=== PATIENT | female | born 1980 | race Caucasian/White ===

== ENCOUNTER 2017-03-01 21:52 | Emergency (ER) | payer OTHER ==
[~2017-03-01] VITALS: Ht 167.6 cm; Wt 71.7 kg
[2017-03-01 22:02] VITALS: Ht 167.6 cm; Wt 71.7 kg
[2017-03-01] MEDS ORDERED: SODIUM CHLORIDE 0.9% 1000ML 1,000 ML IV STA (22:30)
[2017-03-01] MEDS ORDERED: CEFTRIAXONE SOD INJ 1 GM ADDVIAL IV STA (22:30)
[2017-03-01] MEDS ORDERED: ONDANSETRON INJ 2 MG/ML 2 ML VIAL IV STA (22:30)
[2017-03-01] MEDS ORDERED: LORAZEPAM 2 MG/ML 1 ML VIAL IV STA (22:34)
[2017-03-01 22:51] LABS: URINE APPEARANCE CLEAR (CLEAR); URINE BILIRUBIN NEG (NEG); URINE COLOR DK YELLOW; URINE NITRITE POS (NEG); URINE SPECIFIC GRAVITY 1.024 (1.000-1.030); UROBILINOGEN NEG (NEG); ZZUR CULT IF INDIC CLEAN CATCH NO
[2017-03-01 22:58] LABS: MANUAL MICROSCOPIC REQUIRED? NO; REVIEW REQ? NO
[2017-03-01 23:03] LABS: BASO % 0.1 %; BASO ABS # 0.01 K/uL (0-0.2); COMPLETE YES; EOS % 0.4 %; HEMATOCRIT 44.4 % (37-47); IG% 0.4 %; LYMPH % 1.9 %; LYMPH ABS # 0.21 K/uL (1.2-3.4); MEAN CELL VOLUME 89.3 fL (80-100); MEAN CORPUSCULAR HEMOGLOBIN 31.6 pg (25-34); MEAN CORPUSCULAR HGB CONC 35.4 g/dl (32-36); MEAN PLATELET VOLUME 9.7 fL (7.4-10.4); MONO % 3.8 %; NEUT % 93.4 %; PLATELET COUNT 128 K/uL (130-400); RED BLOOD COUNT 4.97 M/uL (4.2-5.4); WHITE BLOOD COUNT 10.84 K/uL (4.8-10.8)
[2017-03-01 23:20] LABS: BUN/CREATININE RATIO 12.6 (10-20); CALCIUM 9.2 mg/dl (8.5-10.1); CREATININE 1.3 mg/dl (0.60-1.20); POTASSIUM 3.9 mmol/L (3.5-5.1)
[2017-03-01 23:34] LABS: PREG INTERNAL NEGATIVE QC NEG CLEAR BACKGROUND; PREG INTERNAL POSITIVE QC POS CONTROL LINE
[2017-03-01] MEDS ORDERED: CIPR-255 PO (23:54)
[2017-03-02] MEDS ORDERED: LAMO150T32 PO (00:36)
[2017-03-02] MEDS ORDERED: KETOROLAC TROMETHAMINE 30 MG/ML VIAL IV STA (00:43)
[2017-03-02] MEDS ORDERED: CIPROFLOXACIN 500MG HOME PACK PO ONE (00:45)
[2017-03-02] MEDS ORDERED: ONDANSETRON HOME PACK 4MG OD TAB PO ONE (01:00)
[2017-03-02 01:04] VITALS: BP 99/51; PULSE 117; TEMP 37.4; O2SAT 97
--- NOTE | 2017-03-02 02:56 | EMERGENCY ROOM VISIT NOTE ---
History First contact with patient: 22:30 Chief Complaint: ALLERGIC REACTION Stated Complaint: REACTION TO BACTRIM, URINARY INFECTION SYMPTOMS Nursing Triage Summary: started bactrim for uti presents c/o redness to eyes and generalized illness History of Present Illness The patient is a 37 year old female who presents to the Emergency Room with complaints of urinary frequency, urgency, dysuria and suprapubic discomfort for the past few days who is also feeling fatigued and has redness to her eyes. Patient went to urgent care was given Bactrim for UTI today. Symptoms got worse and came here. Patient has a history of frequent UTIs. She is new to the area. She has an appointment in 2 weeks with urology for further workup for her recurrent UTIs. She's been on Bactrim several times in the past. Patient denies chest pain, dyspnea, fever, chills, nausea, vomiting, diarrhea vaginal itching or discharge. Patient is in a monogamous relationship. She does complain of some right flank discomfort that is minimal. Review of Systems See HPI for pertinent positives & negatives. A total of 10 systems reviewed and were otherwise negative. Past Medical/Surgical History Epilepsy Social History Smoking Status: Never Smoker Smokeless Tobacco Use: No Alcohol Use: occasionally Drug Use: none Marital Status: Housing Status: lives with family Occupation Status: employed Current/Historical Medications Scheduled Ciprofloxacin Hcl (Cipro), 500 MG PO BID Lamotrigine (Lamictal), 300 MG PO BID Lamotrigine (Lamictal), 2 TAB PO BID Miscellaneous Medications Iud's (Paragard Intrauterine Rn Patient Services) Allergies Coded Allergies: Nitrofurantoin (Verified Allergy, Unknown, INVOLUNTARY MUSCLE SPASMS, ) Physical Exam Vital Signs Date Time Temp Pulse Resp B/P Pulse Ox O2 Delivery O2 Flow Rate FiO2 03/02/17 01:04 37.4 117 16 99/51 97 03/02/17 00:03 37.9 118 16 110/58 98 Room Air 03/01/17 22:02 37.5 118 18 112/69 98 Room Air Pain Rating (0-10): 6.0 Physical Exam VITALS: Vitals are noted on the nurse's note and reviewed by myself. Vital signs stable. GENERAL: Pleasant female, in no acute distress, nondiaphoretic, well-developed well-nourished. SKIN: The skin was without rashes, erythema, edema, or bruising. There is no tenting of the skin. Capillary reflex less than 2 seconds. HEAD: Normocephalic atraumatic. EARS: External auditory canals clear, tympanic membranes pearly gilmore without erythema or effusion bilaterally. EYES: Pupils equal round and reactive to light and accommodation. Conjunctivae with injection, sclerae without icterus. Extraocular movements intact. NOSE: Patent, turbinates without inflammation or discharge. No sinus tenderness. MOUTH: Mucous membranes moist. Pharynx without erythema or exudate. Uvula midline. Airway patent. Tongue does not deviate. NECK: Supple without nuchal rigidity. No lymphadenopathy. No thyromegaly. Cervical spine is nontender. No JVD. HEART: Regular rate and rhythm without murmurs gallops or rubs. LUNGS: Clear to auscultation bilaterally without wheezes, rales or rhonchi. No dullness to percussion. No retractions or accessory muscle use. ABDOMEN: Positive bowel sounds x 4. Normal tympanic percussion. Soft, suprapubic bladder tenderness, right CVA tenderness, without masses or organomegaly. Corley sign negative. No guarding or rebound tenderness. MUSCULOSKELETAL: No muscle atrophy, erythema, or edema noted. NEURO: Patient was alert and oriented to person place and time. Normal sensation to light and sharp touch. No focal neurological deficits. Medical Decision & Procedures Laboratory Results 03/01/17 22:47 Red Blood Count 4.97, Mean Corpuscular Volume 89.3, Mean Corpuscular Hemoglobin 31.6, Mean Corpuscular Hemoglobin Concent 35.4, Mean Platelet Volume 9.7, Neutrophils (%) (Auto) 93.4, Lymphocytes (%) (Auto) 1.9, Monocytes (%) (Auto) 3.8, Eosinophils (%) (Auto) 0.4, Basophils (%) (Auto) 0.1, Neutrophils # (Auto) 10.13, Lymphocytes # (Auto) 0.21, Monocytes # (Auto) 0.41, Eosinophils # (Auto) 0.04, Basophils # (Auto) 0.01 03/01/17 22:47 Test 03/01/17 22:00 03/01/17 22:47 Urine Color DK YELLOW Urine Appearance CLEAR (CLEAR) Urine pH 8.0 (4.5-7.5) Urine Specific [place] 1.024 (1.000-1.030) Urine Protein NEG (NEG) Urine Glucose (UA) NEG (NEG) Urine Ketones TRACE (NEG) Urine Occult Blood NEG (NEG) Urine Nitrite POS (NEG) Urine Bilirubin NEG (NEG) Urine Urobilinogen NEG (NEG) Urine Leukocyte Esterase NEG (NEG) Urine WBC (Auto) 1-5 /hpf (0-5) Urine RBC (Auto) 0-4 /hpf (0-4) Urine Hyaline Casts (Auto) 0 /lpf (0-5) Urine Epithelial Cells (Auto) 10-20 /lpf (0-5) Urine Bacteria (Auto) NEG (NEG) White Blood Count 10.84 K/uL (4.8-10.8) Red Blood Count 4.97 M/uL (4.2-5.4) Hemoglobin 15.7 g/dL (12.0-16.0) Hematocrit 44.4 % (37-47) Mean Corpuscular Volume 89.3 fL (80-100) Mean Corpuscular Hemoglobin 31.6 pg (25-34) Mean Corpuscular Hemoglobin Concent 35.4 g/dl (32-36) Platelet Count 128 K/uL (130-400) Mean Platelet Volume 9.7 fL (7.4-10.4) Neutrophils (%) (Auto) 93.4 % Lymphocytes (%) (Auto) 1.9 % Monocytes (%) (Auto) 3.8 % Eosinophils (%) (Auto) 0.4 % Basophils (%) (Auto) 0.1 % Neutrophils # (Auto) 10.13 K/uL (1.4-6.5) Lymphocytes # (Auto) 0.21 K/uL (1.2-3.4) Monocytes # (Auto) 0.41 K/uL (0.11-0.59) Eosinophils # (Auto) 0.04 K/uL (0-0.5) Basophils # (Auto) 0.01 K/uL (0-0.2) RDW Standard Deviation 40.8 fL (36.4-46.3) RDW Coefficient of Variation 12.5 % (11.5-14.5) Immature Granulocyte % (Auto) 0.4 % Immature Granulocyte # (Auto) 0.04 K/uL (0.00-0.02) Anion Gap 8.0 mmol/L (3-11) Est Creatinine Clear Calc Drug Dose 60.7 ml/min Estimated GFR () 61.1 Estimated GFR (Non- 52.7 BUN/Creatinine Ratio 12.6 (10-20) Calcium Level 9.2 mg/dl (8.5-10.1) Human Chorionic Gonadotropin, Qual NEG (NEG) Medications Administered Medications (Trade) Dose Ordered Sig/Nilson Route Start Time Stop Time Status Last Admin Dose Admin Ceftriaxone Sodium (Rocephin Inj) 1 gm NOW STAT IV 03/01/17 22:30 03/01/17 22:32 DC 03/01/17 22:47 1 GM Ondansetron HCl 4 mg 4 mg NOW STAT IV 03/01/17 22:30 03/01/17 22:32 DC 03/01/17 22:48 4 MG Sodium Chloride (Nss 1000ml) 1,000 ml @ 999 mls/hr Q1H1M STAT IV 03/01/17 22:30 03/01/17 23:30 DC 03/01/17 22:48 999 MLS/HR Lorazepam (Ativan Inj) 0.5 mg NOW STAT IV 03/01/17 22:34 03/01/17 22:35 DC 03/01/17 22:48 0.5 MG Ketorolac Tromethamine (Toradol Inj) 30 mg NOW STAT IV 03/02/17 00:43 03/02/17 00:44 DC 03/02/17 00:53 30 MG Ciprofloxacin (Cipro 500MG Home Pack) 1 homepack UD ONCE PO 03/02/17 00:45 03/02/17 00:46 DC 03/02/17 00:53 1 HOMEPACK Ondansetron HCl (ZOFRAN ODT 4MG Home Pack) 1 homepack UD ONCE PO 03/02/17 01:00 03/02/17 01:01 DC 03/02/17 01:01 1 HOMEPACK ED Course Prior records/ancillary studies reviewed. Triage Nursing notes reviewed. Additional history obtained from family The patient's history was concerning for urinary symptoms with some right flank discomfort and feeling fatigued. Differential diagnosis: Etiologies such as appendicitis, diverticulitis, PUD, biliary pathology, UTI, pancreatitis, obstruction, mesenteric ischemia, aortic pathology, infections, inflammatory bowel disease, renal colic, as well as others were entertained. Physical examination findings: As above. ER treatment provided: IV fluids, Rocephin On reassessment the patient felt better. Diagnostics interpreted by me: The labs revealed mild leukocytosis, urine concerning for possible infection and sent for culture Exam and history seem consistent with UTI with right flank tenderness. Urine culture was sent. Patient felt better to be medicated as above. She is advised to drink plenty of fluids to flush the bladder and take medications as directed. She is advised to follow-up with urology as scheduled and her family care doctor. She is advised to return to the ER me for fevers, vomiting, worsening signs or symptoms or as needed.By the evaluation outlined above emergent etiologies such as appendicitis, diverticulitis, PUD, biliary pathology , pancreatitis, obstruction, mesenteric ischemia, aortic pathology, inflammatory bowel disease, renal colic, as well as others were deemed relatively unlikely. Patient then asked at discharge for refill of her Lamictal for her seizure disorder. She takes 300 mg twice a day. I did verify this with the pharmacist as this seemed like a high-dose and amina Scruggs , states this is okay to refill. The pt informed about the findings as listed above. All questions were answered and pleased with the treatment. Return instructions were outlined and the patient was discharged in stable condition. Outpatient prescription management: Cipro Zofran, Lamictal Referral: The patient was referred back to their primary care physician for follow-up in 2 to 3 days for a recheck of the current condition. She reviewed with my attending Medical Decision As above Impression Primary Impression: UTI (urinary tract infection) Departure Information Dispostion Home / Self-Care Condition GOOD Prescriptions Lamotrigine (Lamictal) 150 Mg Tab 2 TAB PO BID for 30 Days, #120 TAB 1 Refill Prov: Sydney Love PA-C 03/02/17 Ciprofloxacin Hcl (CIPRO) 500 Mg Tab 500 MG PO BID for 6 Days, #12 TAB Prov: Sydney Love PA-C 03/01/17 Forms HOME CARE DOCUMENTATION FORM, IMPORTANT VISIT INFORMATION Patient Instructions UTI, My [facility] Additional Instructions DO NOT drive, drink alcohol, operate machinery, or perform dangerous activities today. You were given medications in the ER that can affect your ability to safely function or operate a vehicle. Ciprofloxacin(Cipro) 500mg: Take one pill twice daily for 7 days for your urine infection. All antibiotics can cause diarrhea. If this occurs and you feel worse or it does not resolve in 1-2 days follow up with your doctor or return to the Emergency Department as this could be signs of serious underlying problems. If you experience any pain in your tendons or any tendon injury return to the ER for re-evaluation. Any medication can cause an allergic reaction, stop the pills immediately and return to the ER for rash, hives, breathing difficulties, or swelling. Zofran 4 mg: Take one every six hours as needed for nausea. Avoid alcohol, operating machinery or dangerous equipment, working on ladders or roofs, DRIVING , or situations where being under the influence may be dangerous. Ibuprofen(Motrin, Advil) may be used for fever or pain. Use 600mg every six hours as needed. Take with food. Avoid using more than 2400mg in a 24 hour period. Do not use 2400mg per day for more than three consecutive days without physician direction. Prolonged inappropriate use can lead to stomach upset or ulcers. (AND/OR) Acetaminophen(Tylenol) may be used for fever or pain. Use 1000mg every six hours as needed. Avoid using more than 3000mg in a 24 hour period. Rest and drink plenty of fluids as tolerated. Slow sips of water or sports drinks are recommended instead of large amounts all at once. Continue current medications. Once your stomach is settled start with a clear liquid diet (jello, soup broth, etc.) and then advance as tolerated. You should avoid full, heavy meals for about 24 hrs from the time your symptoms resolved. Return to the ER immediately for worsening or persistent abdominal/back pain, vomiting, fevers, worsening of your condition, or as needed. Follow up with your primary physician within 2-3 days for a recheck of the current condition. Follow up with urology as scheduled. Problem Qualifiers Primary Impression: UTI (urinary tract infection) Urinary tract infection type: acute cystitis Hematuria presence: without hematuria Qualified Codes: N30.00 - Acute cystitis without hematuria
[2017-03-03] MEDS ORDERED: LAMO150T32 PO (00:06)
[2017-03-03] MEDS ORDERED: IUD'IUD INT UTER (00:07)
[2017-03-03] MEDS ORDERED: PHEN-876 PO (17:06)
--- NOTE | 2017-03-04 12:30 | Pharmacy Progress Note ---
ED Pharmacist Culture FollowUp Date of Service: Mar 04, 2017. Lactobacillus growing from patient's urine culture. Patient likely does have UTI (UA with + nitrite, ketones, and pH of 8.0) and was symptomatic. However, she was started on Bactrim prior to arrival and thus this urine was obtained post-antibiotics. Both organism (Lactobacillus) and presence of epithelial cells on UA suggest that this is a contaminant and not the cause of the UTI. Patient was sent home on ciprofloxacin. No intervention required at this time. Case discussed w Dr. Sidhu.
== END 2017-03-02 01:05 | disposition home or self-care (01) ==
LOC: C.EDB 21:59
DX: N39.0 Urinary tract infection, site not specified (principal); N30.00 Acute cystitis without hematuria

== ENCOUNTER 2017-03-03 14:14 | Emergency (ER) | payer OTHER ==
[~2017-03-03] VITALS: Ht 167.6 cm; Wt 72.1 kg
[~2017-03-03 14:14] MED LIST: CIPR-255 PO; IUD'IUD INT UTER; LAMO150T32 PO
[2017-03-03 14:17] VITALS: TEMP 36.9; Ht 167.6 cm; Wt 72.1 kg
[2017-03-03] MEDS ORDERED: ONDANSETRON INJ 2 MG/ML 2 ML VIAL IV STA (14:48)
[2017-03-03 15:14] LABS: BASO % 0.2 %; BASO ABS # 0.01 K/uL (0-0.2); COMPLETE YES; EOS % 2.8 %; HEMATOCRIT 38.1 % (37-47); IG% 0.4 %; LYMPH % 29.2 %; LYMPH ABS # 1.34 K/uL (1.2-3.4); MEAN CELL VOLUME 88.2 fL (80-100); MEAN CORPUSCULAR HEMOGLOBIN 31.3 pg (25-34); MEAN CORPUSCULAR HGB CONC 35.4 g/dl (32-36); MEAN PLATELET VOLUME 9.7 fL (7.4-10.4); MONO % 6.5 %; NEUT % 60.9 %; PLATELET COUNT 140 K/uL (130-400); RED BLOOD COUNT 4.32 M/uL (4.2-5.4); WHITE BLOOD COUNT 4.59 K/uL (4.8-10.8)
[2017-03-03 15:17] LABS: URINE APPEARANCE CLEAR (CLEAR); URINE BILIRUBIN NEG (NEG); URINE COLOR YELLOW; URINE EPITHELIAL CELL AUTO 20-30 /lpf (0-5); URINE NITRITE NEG (NEG); URINE SPECIFIC GRAVITY 1.024 (1.000-1.030); UROBILINOGEN NEG (NEG); ZZUR CULT IF INDIC CLEAN CATCH NO
--- NOTE | 2017-03-03 15:17 | EMERGENCY ROOM VISIT NOTE ---
History First contact with patient: 14:22 Chief Complaint: URINARY SYMPTOMS Stated Complaint: NAUSEA, NAIR, BACK PAIN, URGENCY TO GO TO BATHROOM Nursing Triage Summary: Patient states has been having UTI symptoms for 4 months and has been taking antibiotics every time she gets the symptoms. Patient started having symptoms again on Friday. Patient was here Friday after being put on bactrim by urgent care for allergic reaction. Patient put on cipro while here. Patient c/o back pain for 4 days, N/V, headache. History of Present Illness The patient is a 37 year old female w/ hx of recurrent UTI x 4mos who presents to the Emergency Room with complaints of progressive urinary symptoms x 6 days and Rt sided back pain x4 days. Patient initially went to Urgent Care on 03/01, was placed on Bactrim. Patient had a non-allergic uncomfortable reaction to the drug after taking one pill. She then preceded to go to ED on the same day and was placed on Cipro for a suspected UTI based on UA, however, cultures returned with Lactobacillus. She also reports 4 day hx of Rt sided back pain in addition to N/V, subjective fever, chills, NAIR . Pt denies chest pain, shortness of breath, pain with urination, and diarrhea, melena. Patient called Urology clinic today and was advised to go to ED today for care. She has a urology appt scheduled this week Review of Systems See HPI for pertinent positives & negatives. A total of 10 systems reviewed and were otherwise negative. Past Medical/Surgical History Past Medical Hx: Epilepsy Past Surgical Hx: Cholecystectomy Social History Smoking Status: Never Smoker Alcohol Use: occasionally Drug Use: none Marital Status: Housing Status: lives with family Occupation Status: employed Current/Historical Medications Scheduled Ciprofloxacin Hcl (Cipro), 500 MG PO BID Iud's (Paragard Intrauterine [employer]uction [employer]), 1 EA INT UTER UD Lamotrigine (Lamictal), 300 MG PO BID Phenazopyridine HCl (Pyridium), 200 MG PO TID Allergies Coded Allergies: Nitrofurantoin (Verified Allergy, Unknown, INVOLUNTARY MUSCLE SPASMS, ) Physical Exam Vital Signs Date Time Temp Pulse Resp B/P Pulse Ox O2 Delivery O2 Flow Rate FiO2 03/03/17 16:12 71 20 116/87 100 Room Air 03/03/17 14:17 36.9 74 18 120/74 96 Room Air Pain Rating (0-10): 4 Physical Exam GENERAL: alert, well appearing, well nourished, no distress, non-toxic EYE EXAM: normal conjunctiva, PERRL and EOM's grossly intact OROPHARYNX: no exudate, no erythema, lips, buccal mucosa, and tongue normal and mucous membranes are moist NECK: supple, no nuchal rigidity, no adenopathy, non-tender LUNGS: Clear to auscultation. Normal chest wall mechanics HEART: no murmurs, S1 normal and S2 normal ABDOMEN: abdomen soft, non-tender, normo-active bowel sounds, no masses, no rebound or guarding. BACK: Tendernes Rt sided lumbar region in paravertebral muscles. Back is symmetrical on inspection and there is no deformity, no midline tenderness, no CVA tenderness. SKIN: no rashes and no bruising UPPER EXTREMITIES: upper extremities are grossly normal. LOWER EXTREMITIES: No pitting edema. NEURO EXAM: Normal sensorium, cranial nerves II-XII grossly intact, normal speech, no gross weakness of arms, no gross weakness of legs. Medical Decision & Procedures ER Provider Diagnostic Interpretation: ABDOMEN AND PELVIS CT WITHOUT CONTRAST CT DOSE: 674.09 mGycm HISTORY: Nausea. Back pain. R/O Stone TECHNIQUE: Multiaxial CT images of the abdomen and pelvis were performed without the use of intravenous and oral contrast according to the standard department stone protocol. COMPARISON STUDY: None. FINDINGS: There are 2 subcentimeter indeterminate pulmonary nodules within the left lower lobe on image 28 which measure 4 mm. The right lung base is clear. No fractures within the visualized osseous structures. Cholecystectomy. The unenhanced spleen, adrenal glands, pancreas, and kidneys are unremarkable. No renal stones or hydronephrosis. Normal bladder. The intrauterine device is in good position. No pelvic free fluid. Suboptimal evaluation for bowel pathology due to the lack of intravenous and oral contrast. However, there is no definite bowel wall thickening or obstruction. No retroperitoneal lymphadenopathy. The appendix is top normal in diameter measuring 6 mm. No periappendiceal fat stranding. IMPRESSION: 1. No renal stones or hydronephrosis. 2. No definite bowel wall thickening or obstruction. 3. Cholecystectomy. 4. There are 2 adjacent 4 mm indeterminate pulmonary nodules within the left lower lobe. Please refer to the chart below for recommended follow-up. 5. No CT evidence for acute appendicitis. Laboratory Results 03/03/17 14:55 Red Blood Count 4.32, Mean Corpuscular Volume 88.2, Mean Corpuscular Hemoglobin 31.3, Mean Corpuscular Hemoglobin Concent 35.4, Mean Platelet Volume 9.7, Neutrophils (%) (Auto) 60.9, Lymphocytes (%) (Auto) 29.2, Monocytes (%) (Auto) 6.5, Eosinophils (%) (Auto) 2.8, Basophils (%) (Auto) 0.2, Neutrophils # (Auto) 2.79, Lymphocytes # (Auto) 1.34, Monocytes # (Auto) 0.30, Eosinophils # (Auto) 0.13, Basophils # (Auto) 0.01 03/03/17 14:55 Test 03/03/17 14:30 03/03/17 14:55 Urine Color YELLOW Urine Appearance CLEAR (CLEAR) Urine pH 6.0 (4.5-7.5) Urine Specific [place] 1.024 (1.000-1.030) Urine Protein NEG (NEG) Urine Glucose (UA) NEG (NEG) Urine Ketones NEG (NEG) Urine Occult Blood TRACE (NEG) Urine Nitrite NEG (NEG) Urine Bilirubin NEG (NEG) Urine Urobilinogen NEG (NEG) Urine Leukocyte Esterase NEG (NEG) Urine WBC (Auto) 1-5 /hpf (0-5) Urine RBC (Auto) 5-10 /hpf (0-4) Urine Hyaline Casts (Auto) 1-5 /lpf (0-5) Urine Epithelial Cells (Auto) 20-30 /lpf (0-5) Urine Bacteria (Auto) NEG (NEG) White Blood Count 4.59 K/uL (4.8-10.8) Red Blood Count 4.32 M/uL (4.2-5.4) Hemoglobin 13.5 g/dL (12.0-16.0) Hematocrit 38.1 % (37-47) Mean Corpuscular Volume 88.2 fL (80-100) Mean Corpuscular Hemoglobin 31.3 pg (25-34) Mean Corpuscular Hemoglobin Concent 35.4 g/dl (32-36) Platelet Count 140 K/uL (130-400) Mean Platelet Volume 9.7 fL (7.4-10.4) Neutrophils (%) (Auto) 60.9 % Lymphocytes (%) (Auto) 29.2 % Monocytes (%) (Auto) 6.5 % Eosinophils (%) (Auto) 2.8 % Basophils (%) (Auto) 0.2 % Neutrophils # (Auto) 2.79 K/uL (1.4-6.5) Lymphocytes # (Auto) 1.34 K/uL (1.2-3.4) Monocytes # (Auto) 0.30 K/uL (0.11-0.59) Eosinophils # (Auto) 0.13 K/uL (0-0.5) Basophils # (Auto) 0.01 K/uL (0-0.2) RDW Standard Deviation 40.0 fL (36.4-46.3) RDW Coefficient of Variation 12.4 % (11.5-14.5) Immature Granulocyte % (Auto) 0.4 % Immature Granulocyte # (Auto) 0.02 K/uL (0.00-0.02) Anion Gap 6.0 mmol/L (3-11) Est Creatinine Clear Calc Drug Dose 89.8 ml/min Estimated GFR () 98.0 Estimated GFR (Non- 84.5 BUN/Creatinine Ratio 12.7 (10-20) Calcium Level 8.6 mg/dl (8.5-10.1) Medications Administered Medications (Trade) Dose Ordered Sig/Nilson Route Start Time Stop Time Status Last Admin Dose Admin Ondansetron HCl (Zofran Inj) 4 mg NOW STAT IV 03/03/17 14:48 03/03/17 14:51 DC 03/03/17 15:07 4 MG Medical Decision Differential diagnoses for Back Pain : includes but is not limited to Nephrolithiasis, Pyelonephritis, lumbar radiculopathy, muscle strain, facture, cauda equina, mass, and disc herniation. Differential diagnoses for Urinary Urgency: UTI, Interstitial cystitis, Gonococcal/Chlamydial Urethritis 37 yo F p/w recurrent hx urinary urgency ,recently seen in ED 03/01 for suspected UTI placed on Cipro (Urine cx results showing only Lactobacillus) p/ w with 6 day hx of urinary urgency, rt sided back pain, nausea vomiting, subj fever/chills. Urinary urgency, Rt sided back pain afebrile, AOx3 CBC unremarkable BMP: unremarkable UA: unremarkable Bladder Scan: [address] Abdomen /Pelvis: 1. No renal stones or hydronephrosis. 2. No definite bowel wall thickening or obstruction. 3. Cholecystectomy. 4. There are 2 adjacent 4 mm indeterminate pulmonary nodules within the left lower lobe. Please refer to the chart below for recommended follow-up. 5. No CT evidence for acute appendicitis. Patient's recurrent Urinary urgency possibly due to Interstitial cystitis. Urine cx from previous ED visit 03/01 showed only Lactobacillus. Gonococcal/ Chlamydial Urethritis seems unlikely given lack of vaginal discharge, Although patient has Rt sided lower back pain, she has no leukocytosis or fever that might indicate pyelonephritis nor does she have any evidence of Renal Stone on CT despite red cells in UA.Discussed case w/ Arslan Lipscomb (Urology) who advised patient to followup with Urology outpatient and discharge with Pyridium. Patient has a scheduled appt with Urology on 03/21 but was advised to call urology if Pyridium is not providing any relief. Upon reevaluation, the patient is feeling better following Zofran injection. I discussed the findings and the treatment plan with the patient regarding Pyridium prescription. She verbalizes agreement and understanding. Impression Primary Impression: Lower back pain Additional Impression: Urinary urgency Departure Information Dispostion Home / Self-Care Condition GOOD Prescriptions Phenazopyridine HCl (Pyridium) 200 Mg Tab 200 MG PO TID for Bladder Pain, #6 TAB Prov: Hugo Varma MD 03/03/17 Referrals No Doctor, Assigned (PCP) Patient Instructions My [facility] Additional Instructions -Please Take Pyridium as prescribed. If you do not experience relief, please contact Urology clinic -Please stop Ciprofloxacin -Please follow up with Primary care provider this week -Please follow up with scheduled appt with Urology (Abigail Thornton) -Take Ibuprofen or Tylenol as needed for back pain Resident Tracking Resident Involvement: Resident Care Provided Care Provided: Adult ED Problem Qualifiers
[2017-03-03 15:18] LABS: MANUAL MICROSCOPIC REQUIRED? NO; REVIEW REQ? NO
[2017-03-03 15:41] LABS: BUN/CREATININE RATIO 12.7 (10-20); CALCIUM 8.6 mg/dl (8.5-10.1); CREATININE 0.88 mg/dl (0.60-1.20); POTASSIUM 3.8 mmol/L (3.5-5.1)
--- NOTE | 2017-03-03 15:56 | DIAGNOSTIC IMAGING REPORT ---
ABDOMEN AND PELVIS CT WITHOUT CONTRAST CT DOSE: 674.09 mGycm HISTORY: Nausea. Back pain. R/O Stone TECHNIQUE: Multiaxial CT images of the abdomen and pelvis were performed without the use of intravenous and oral contrast according to the standard department stone protocol. COMPARISON STUDY: None. FINDINGS: There are 2 subcentimeter indeterminate pulmonary nodules within the left lower lobe on image 28 which measure 4 mm. The right lung base is clear. No fractures within the visualized osseous structures. Cholecystectomy. The unenhanced spleen, adrenal glands, pancreas, and kidneys are unremarkable. No renal stones or hydronephrosis. Normal bladder. The intrauterine device is in good position. No pelvic free fluid. Suboptimal evaluation for bowel pathology due to the lack of intravenous and oral contrast. However, there is no definite bowel wall thickening or obstruction. No retroperitoneal lymphadenopathy. The appendix is top normal in diameter measuring 6 mm. No periappendiceal fat stranding. IMPRESSION: 1. No renal stones or hydronephrosis. 2. No definite bowel wall thickening or obstruction. 3. Cholecystectomy. 4. There are 2 adjacent 4 mm indeterminate pulmonary nodules within the left lower lobe. Please refer to the chart below for recommended follow-up. 5. No CT evidence for acute appendicitis. Please refer to below summary of Fleischner criteria recommendations for follow-up of incidental CT nodules (Marcell Garcia, Guidelines for management of small pulmonary nodules detected on CT scans: A statement from the Fleischner Society, Radiology 237: [phone].) SOLID NODULES Solitary nodule size: <6 mm * low risk patients: no follow-up needed * high risk patients: optional CT at 12 months Solitary nodule size: 6-8 mm * low risk patients: follow-up at 6-12 months, then consider further follow-up at 18-24 months * high risk patients: initial follow-up CT at 6-12 months and then at 18-24 months if no change Solitary nodule size: >8 mm * either low or high risk patients - consider follow-up CT at 3 months, and/or CT-PET, and/or biopsy Multiple nodules size: <6 mm * low risk patients: no routine follow-up * high risk patients: optional CT at 12 months Multiple nodules size: 6-8 mm * low risk patients: follow-up at 3-6 months, then consider further follow-up at 18-24 months * high risk patients: follow-up at 3-6 months, then at 18-24 months if no change Multiple nodules size: >8 mm * low risk patients: follow-up at 3-6 months, then consider further follow-up at 18-24 months * high risk patients: follow-up at 3-6 months, then at 18-24 months if no change Note: newly detected indeterminate nodule in persons 35 years of age or older. * low risk patients: minimal or absent history of smoking and/or other known risk factors * high risk patients: history of smoking or of other known risk factors (e.g. first degree relative with lung cancer, or exposure to asbestos, radon, uranium) * if a nodule up to 8 mm is partly solid or is ground glass further follow-up is required after 24 months to exclude possible slow growing adenocarcinoma (DOMINIQUE) SUBSOLID NODULES Solitary pure ground-glass nodule * nodule size <6 mm - no CT follow-up required * nodule size >=6 mm - follow-up CT at 6-12 months, then every 2 years until 5 years Solitary part-solid nodule * nodule size <6 mm - no CT follow-up required * nodule size >=6 mm - follow-up CT at 3-6 months. If unchanged, and solid component remains <6 mm, then annual follow-up for 5 years Multiple subsolid nodules * nodule size <6 mm - follow-up CT at 3-6 months, consider further follow-up at 2 and 4 years if stable * nodule size >=6 mm - follow-up CT at 3-6 months, subsequent management based on the most suspicious nodule(s) Electronically signed by: Elvis De La O M.D. 03/03/2017 3:54 PM Dictated Date/Time: 03/03/2017 3:48 PM
--- NOTE | 2017-03-03 16:44 | EMERGENCY ROOM VISIT NOTE ---
ED Visit Note First contact with patient: 14:22 Resident Physician Supervision Note: I was present with Dr. Varma during the history and exam. I discussed the case with the resident and agree with the findings and plan as documented in the note. Documented By: Riley Sidhu
[2017-03-03] MEDS ORDERED: PHEN-876 PO (17:06)
[2017-03-03 18:45] VITALS: BP 101/68; PULSE 69; O2SAT 100
== END 2017-03-03 18:45 | disposition home or self-care (01) ==
LOC: C.EDB 14:16 → C.EDC 18:45
DX: M54.5 Low back pain (principal); R39.15 Urgency of urination; Z87.440 Personal history of urinary (tract) infections; G40.909 Epilepsy, unspecified, not intractable, without status epilepticus; Z90.49 Acquired absence of other specified parts of digestive tract; Z79.899 Other long term (current) drug therapy

== ENCOUNTER → 2017-03-26 | Outpatient (CLI) | payer OTHER ==
[~2017-03-26] MED LIST changes: +PHEN-876 PO
[2017-03-26 17:38] LABS: BASO % 0.2 %; BASO ABS # 0.02 K/uL (0-0.2); COMPLETE YES; EOS % 1.4 %; HEMATOCRIT 43.6 % (37-47); IG% 0.4 %; LYMPH % 28.2 %; LYMPH ABS # 2.35 K/uL (1.2-3.4); MEAN CELL VOLUME 90.8 fL (80-100); MEAN CORPUSCULAR HEMOGLOBIN 31.3 pg (25-34); MEAN CORPUSCULAR HGB CONC 34.4 g/dl (32-36); MEAN PLATELET VOLUME 10.1 fL (7.4-10.4); NEUT % 65.8 %; PLATELET COUNT 184 K/uL (130-400); WHITE BLOOD COUNT 8.32 K/uL (4.8-10.8)
[2017-03-26 17:59] LABS: BLOOD UREA NITROGEN 15 mg/dl (7-18); BUN/CREATININE RATIO 17.8 (10-20); CALCIUM 9.1 mg/dl (8.5-10.1); CARBON DIOXIDE 28 mmol/L (21-32); CHLORIDE 105 mmol/L (98-107); CREATININE 0.82 mg/dl (0.60-1.20); GLUCOSE 77 mg/dl (70-99); POTASSIUM 3.8 mmol/L (3.5-5.1); SODIUM 141 mmol/L (136-145)
[2017-03-26 18:02] LABS: CHOLESTEROL 168 mg/dl (0-200); CHOLESTEROL/HDL RATIO 3.7; HDL CHOLESTEROL 45 mg/dl; LDL CHOLESTEROL CALCULATED 108 mg/dl; TRIGLYCERIDES 74 mg/dl (0-150); VERY LOW DENSITY LIPOPROT CALC 15 mg/dl
== END | disposition home or self-care (01) ==
LOC: C.LABBFT 15:06
PROVIDERS: ATTEND Nurse Practitioner Adult Health
DX: Z00.00 Encounter for general adult medical examination without abnormal findings (principal); Z13.220 Encounter for screening for lipoid disorders

== ENCOUNTER → 2017-06-06 | Outpatient (CLI) | payer OTHER | END | disposition home or self-care (01) | LOC: C.PAPS 09:56 | PROVIDERS: ATTEND Physician Assistant | DX: Z12.4 Encounter for screening for malignant neoplasm of cervix (principal) ==

== ENCOUNTER 2018-07-04 14:09 | Emergency (ER) | payer OTHER ==
[~2018-07-04] VITALS: Ht 167.6 cm; Wt 76.2 kg
[~2018-07-04 14:09] MED LIST changes: +LAMO150T PO; -LAMO150T32 PO; -PHEN-876 PO
[2018-07-04 14:14] VITALS: TEMP 36.8; Ht 167.6 cm; Wt 76.2 kg
[2018-07-04] MEDS ORDERED: IBUPROFEN 200 MG TAB PO STA (14:29)
[2018-07-04] MEDS ORDERED: ACETAMINOPHEN 500 MG TAB PO STA (14:29)
[2018-07-04] MEDS ORDERED: LIDOCAINE/EPINEPHRINE 1% 20 ML VIAL INFIL ONE (14:30)
--- NOTE | 2018-07-04 14:48 | EMERGENCY ROOM VISIT NOTE ---
History Report prepared by Kristie: Gualberto Rhodes Under the Supervision of: Dr. Eric Ye M.D. First contact with patient: 14:17 Chief Complaint: LACERATION/CUT (SUT/DERMABOND) Stated Complaint: LEFT HAND LACERATION Nursing Triage Summary: triage note: Pt reports at 1345 today while trying to cut an avacodo she cut the palm of her left hand. History of Present Illness The patient is a 38 year old female with a past medical history of anxiety, epilepsy. lower back pain, and UTI who presents to the ED with a cc of a laceration on her left palm that occurred 30 minutes ago while stabbing into a pit of an avocado. The patient describes the pain as a constant throbbing that was accompanied with some dizziness. The patient reports that she is UTD on vaccinations and takes medications for her epilepsy, anti-inflammatory medications for an ACL injury and Lexapro for anxiety. The patients also notes that she is right handed and not taking any blood thinner medications. Negative for alcohol use, and tobacco use. Source of History: patient Onset: 30 minutes ago Position: hand (left) Quality: other (Throbbing) Timing: constant Associated Symptoms: + weakness (Dizziness) Review of Systems See HPI for pertinent positives and negatives. A total of six systems were reviewed and were otherwise negative. Family History Cancer Diabetes mellitus Social History Smoking Status: Never Smoker Alcohol Use: occasionally Drug Use: none Marital Status: Housing Status: lives with family Occupation Status: employed Current/Historical Medications Scheduled Escitalopram (Lexapro), 10 MG PO DAILY Lamotrigine (Lamictal), 300 MG PO BID Allergies Coded Allergies: Nitrofurantoin (Verified Allergy, Unknown, INVOLUNTARY MUSCLE SPASMS, 07/04) Physical Exam Vital Signs Date Time Temp Pulse Resp B/P (MAP) Pulse Ox O2 Delivery O2 Flow Rate FiO2 07/04/18 14:59 65 18 139/75 96 Room Air 07/04/18 14:14 36.8 79 18 129/76 99 Room Air Physical Exam GENERAL: Awake, alert, well-appearing, NAD HENT: Normocephalic, atraumatic. EYES: Normal conjunctiva. Sclera non-icteric. PERRL. No anisocoria. NECK: Supple. No nuchal rigidity. FROM. RESPIRATORY: CTAB, no rhonchi, wheezing, crackles CARDIAC: RRR, no MRG ABDOMEN: Soft, NTND, BS+ MSK: No chest wall TTP, no LE edema NEURO: GCS 15, CN 2-12 intact, moves all 4s on command, MUR nerves intact distally SKIN: No rash or jaundice noted. 2 cm laceration to palmar aspect proximal to 2nd digit, hemostatic Medical Decision & Procedures Medications Administered Medications (Trade) Dose Ordered Sig/Nilson Route Start Time Stop Time Status Last Admin Dose Admin Ibuprofen (Advil Tab) 400 mg NOW STAT PO 07/04/18 14:29 07/04/18 14:30 DC 07/04/18 14:48 400 MG Acetaminophen (Tylenol Tab) 1,000 mg NOW STAT PO 07/04/18 14:29 07/04/18 14:30 DC 07/04/18 14:49 1,000 MG Procedure Location: Distal left palm proximal to second digit. Total length: 2 cm Complexity: Simple Verbal consent was obtained after the risks and benefits were explained, including but not limited to bleeding, scarring, infection, pain, and bone/joint /nerve damage. At this time, the risks of the procedure are less than the risks of NOT performing the procedure. A time out was taken and the correct patient and site identified. The skin was prepped with chloraprep. The target area was anesthetized with 2 ml of 1% lidocaine without epinephrine. Copious irrigation was performed using sterile saline and betadine. The skin was re-prepped with betadine and a sterile field set. The wound was explored for foreign bodies and none found. Examination revealed no injury to deep structures such as tendons, bone, or significant blood vessels. Debridement was not performed. The wound edges were approximated using 3, 4-0 ethilon sutures. Hemostasis and excellent approximation was achieved. Antibacterial ointment and a sterile dressing applied. Detailed wound care instructions and signs and symptoms of infection reviewed with the patient. No complications and the patient tolerated the procedure well. ED Course 1419: The patient was evaluated in room C3. A complete history and physical exam was performed. 1430: I repaired the laceration on the patient's left hand 1500: I reevaluated the patient. Discussed results and discharge instructions: She verbalized understanding and agreement. The patient is ready for discharge. Medical Decision Nursing notes reviewed. Ancillary studies and prior records reviewed. The patient is a 38 year old female with a past medical history of anxiety, epilepsy. lower back pain, and UTI who presents to the ED with a cc of a laceration on her left palm that occurred 30 minutes ago while stabbing into a pit of an avocado. Differential Diagnosis Laceration, tendon injury, muscle injury, foreign body infection Patient was seen and evaluated the bedside. Patient recently did cut her left hand while cutting and avocado. This happened just prior to arrival. Patient stated that she did apply stock and then was bandaged once presenting to the ER. Patient is up-to-date on her tetanus. On exam the patient does have a 2 cm laceration to the distal left volar aspect of the palm just proximal to the left second digit. It is hemostatic. Patient tolerated a bedside washout and administration of lidocaine with epinephrine. The patient still had good function of all MUR nerves. The patient was told wound care and follow-up instructions as well as when to take stitches out. Patient was given strict follow-up, discharge, and return precautions. All questions were answered. Patient was deemed suitable for outpatient follow-up at this time. Patient agreed with the plan of care and was safely discharged home. Medication Reconcilliation Current Medication List: was personally reviewed by me Blood Pressure Screening Patient's blood pressure: Normal blood pressure Impression Primary Impression: Laceration Scribe Attestation The scribe's documentation has been prepared under my direction and personally reviewed by me in its entirety. I confirm that the note above accurately reflects all work, treatment, procedures, and medical decision making performed by me. Departure Information Dispostion Home / Self-Care Referrals Karina Angel MD (PCP) Forms HOME CARE DOCUMENTATION FORM, IMPORTANT VISIT INFORMATION Patient Instructions ED Laceration All, ED Wound Care, My [facility] Additional Instructions Please return to the emergency department if you have worsening or recurrent symptoms not amenable to at-home treatment. Please call for a follow-up appointment with her primary care physician. Please take your medications as prescribed. If you have other concerns and/or complaints please feel free to also call your primary care physician's office or return the ED for further evaluation, management, and treatment. You were found to have an elevated blood pressure today (>120 sytolic or >90 diastolic). Per medicare guidelines, you need to follow up with this blood pressure screening with your Primary Care Physician (PCP). For a new PCP call [phone]. You received narcotic or benzodiazepene medication while in the emergency room today. This is an addictive medication that may cause drowziness as well as constipation. Do not drive, operate heavy machinery, or drink alcohol under the influence of this medication. You may take 600 mg Ibuprofen every 6 hours as needed for pain/fever with food unless told by your physician not to take NSAIDs. You may take tylenol 650 mg every 6 hours as needed for pain/fever unless told by your physician to not take it or have liver problems. You may take motrin and tylenol separately or at the same time. Take your medications as prescribed. Follow-up in 7-10 days to have your sutures removed. You may return to the emergency department to have this done. You have been examined and treated today on an emergency basis only. This is not a substitute for, or an effort to provide, complete comprehensive medical care. It is impossible to recognize and treat all injuries or illnesses in a single emergency department visit. It is therefore important that you follow up closely with [facility], your PCP, and/or your specialist(s). Call as soon as possible for an appointment. Thank you for your time and consideration. I look forward to speaking with you again soon. Please don't hesitate to call us if you have any questions.
[2018-07-04] MEDS ORDERED: ESCI10TA17 PO (14:58)
[2018-07-04 14:59] VITALS: BP 139/75; PULSE 65; O2SAT 96
== END 2018-07-04 14:59 | disposition home or self-care (01) ==
LOC: C.EDB 14:10 → C.EDC 14:59
DX: S61.412A Laceration without foreign body of left hand, initial encounter (principal); W26.0XXA Contact with knife, initial encounter; Y93.G1 Activity, food preparation and clean up; F41.9 Anxiety disorder, unspecified; G40.909 Epilepsy, unspecified, not intractable, without status epilepticus; Z79.899 Other long term (current) drug therapy; Z88.1 Allergy status to other antibiotic agents

== ENCOUNTER → 2018-07-20 | Outpatient (CLI) | payer OTHER ==
[~2018-07-20] MED LIST changes: -CIPR-255 PO; +ESCI10TA17 PO; -IUD'IUD INT UTER
== END | disposition home or self-care (01) ==
LOC: C.LABBFT 13:37
PROVIDERS: ATTEND Nurse Practitioner Family
DX: Z00.00 Encounter for general adult medical examination without abnormal findings (principal)